=== PATIENT | male | born 1940 | race Caucasian/White ===

== ENCOUNTER 2021-09-06 23:40 | Inpatient (IN) | payer MEDICARE, SELFPAY ==
[2021-09-07] VITALS (48 sets, daily range): BP systolic 67–157; BP diastolic 54–101; PULSE 54–97; RESP 14–38; TEMP 36.5; O2SAT 90–100; BMI 25.6
--- NOTE | 2021-09-07 00:12 | USR_ITS ---
PROCEDURE INFORMATION: Exam: US Left Noninvasive Physiologic Study of the Lower Extremity Arteries, Limited Exam date and time: 09/07/2021 1:38 AM Age: 80 years old Clinical indication: Condition or disease; Peripheral vascular disease; Additional info: Pvd TECHNIQUE: Imaging protocol: Left Limited bilateral noninvasive physiologic studies of lower extremity arteries. Segmental pressures were obtained and evaluated. Images were documented and archived. Exam is limited. COMPARISON: No relevant prior studies available. FINDINGS: Left brachial artery: Segmental pressure 115 mmHg. Left femoral arteries: Left thigh segmental pressure 77 mmHg Left infrapopliteal arteries: Left calf segmental pressure 120 mmHg Left ankle arteries: Left ankle segmental pressures 145 mmHg Left Ankle-Brachial Index: NAILA 1.26 US/CV segpressure [place] s[place] [id number] IMPRESSION: No evidence of stenosis or occlusion in the lower extremity.
--- NOTE | 2021-09-07 00:15 | P.HP_ITS ---
Providers/Chief Complaint Admitting Physician: James Spicer MD Chief Complaint: bilateral PE History of Present Illness Gildardo Malloy is a 80 year old male with past medical history of Coronary artery disease s/p CABG , COPD, right knee BKA , was accepted as ICU transfer from [facility] emergency room, patient presented there with chief complaint of worsening shortness of breath Going on for the last 2 days, further work-up done in the ER there. Revealed acute PE. Patient was transferred here for ICU level of care. Patient is currently requiring 10 to 12 L oxygen through Venturi mask, does have significant desaturation with minimal exertion, currently maintaining a decent MAP. Pertinent imaging studies: CTA: Acute bilateral pulmonary embolism EKG: Pertinent labs: WBC:14 H&H: 14/42 PLT : 277 Serum sodium: 132 serum potassium: 5.8 BUN: 27 and serum creatinine :1.2 Troponin trend: 126-119, 109 ProBNP: 92722 Review of Systems General: Reports: 10 or more systems reviewed and unremarkable except in HPI and below Const: Denies: fever(s), chills, body aches, change in appetite or diaphoresis Card: Reports: orthopnea; Denies: palpitations, edema or swelling of feet/ankles Resp: Reports: dyspnea; Denies: productive cough, wheezing or pain on inspiration GI: Denies: abdominal pain, nausea, vomiting, diarrhea or constipation : Denies: flank pain or difficulty urinating Musc: Denies: back pain Neuro: Denies: headache(s) or confusion Medications/Allergies Home Medications Medication Instructions Recorded Confirmed Last Taken Type acetaminophen 325 mg tablet 650 mg PO QID PRN 09/07/21 09/07/21 Unknown History (Tylenol) clopidogrel 75 mg tablet 75 mg PO DAILY 09/07/21 09/07/21 Unknown History dutasteride 0.5 mg capsule 0.5 mg PO DAILY 09/07/21 09/07/21 Unknown History gabapentin 300 mg capsule 300 mg PO BID 09/07/21 09/07/21 Unknown History qfcqkgqq-gem-zmsfl acid 300 1 tab PO DAILY 09/07/21 09/07/21 Unknown History mcg-lycopene 600 mcg-lutein 300 mcg tablet (Centrum Silver Men) turmeric 400 mg capsule 400 mg PO BID 09/07/21 09/07/21 Unknown History Allergies Allergy/AdvReac Type Severity Reaction Status Date / Time Penicillins Allergy Intermediate ALGY-Anaphy Verified 09/07/21 06:02 laxis Physical Exam Const: COMMON NORMALS: patient oriented x3 HENMT: COMMON NORMALS: normocephalic and atraumatic HEAD & SCALP: normocephalic and atraumatic Chest: COMMONS NORMALS: normal inspection of the chest and normal palpation of entire chest wall CHEST: Yes Symmetrical chest wall rise Resp: EFFORT & INSPECTION: Yes symmetric chest movement OTHER: bilateral wheezing in both lung mijares, tachypneic Cardio: COMMON NORMALS: regular rate, regular rhythm, S1 normal heart sound present, S2 normal heart sound present, No gallops present (Cardio), No murmurs present (Cardio), No rub (Cardio) and Peripheral pulses 2+ throughout RATE: regular rate RHYTHM: regular rhythm HEART SOUNDS: S1 normal heart sound present and S2 normal heart sound present PERIPHERAL PULSES: Peripheral pulses 2+ throughout GI: COMMON NORMALS: Normal to inspection, nondistended, normoactive bowel sounds present, Soft to palpation, non-tender, No hepatosplenomegaly present and no masses AUSCULTATION: Yes normoactive bowel sounds PALPATION: Yes Soft to palpation and Yes No hepatosplenomegaly present RECTAL EXAM: Yes deferred Extremity: COMMON NORMALS: no clubbing, cyanosis or edema and no pedal edema Neuro: COMMON NORMALS: patient oriented x3 Data : 09/07/21 06:40 09/07/21 06:40 A&P Assessment and plan (1) Acute pulmonary embolism: Status: Acute (2) PAD (peripheral artery disease): Status: Acute Plan 80 year old male with past medical history of Coronary artery disease s/p CABG , COPD, right knee BKA , was accepted as ICU transfer from [facility] emergency room, patient presented there with chief complaint of worsening shortness of breath Going on for the last 2 days, further work-up done in the ER there. Revealed acute PE. Assessment: Acute massive bilateral PE Elevated troponin Type II NSTEMI 2/2 P/E History of coronary artery disease s/p CABG Right knee BKA History of COPD Plan: Patient has received Lovenox in the ER at [facility] , we will switch him to heparin drip Low threshold for thrombolysis if hemodynamic instability sets in, Low threshold to transfer to more advanced center for possible thrombectomy 2D echo: : Grossly LV systolic function is mildly ?reduced. Grossly RV is dilated and hypokinetic. Mildly dilated left atrium. Mild tricuspid regurgitation. Lt lower extremity arterial duplex: No evidence of stenosis or occlusion in the lower extremity. lower extremity Doppler vein: B/L L/E DVT Monitor CBC Solu-Medrol 60 IV every 8 hours DuoNebs Telemetry monitoring CODE STATUS: AND Attestations Medical Necessity Statement*: Patient needs to be in hospital for the mangement of acute pulmonary embolism. Anticipated LOS Greater then 2 midnights. Time Spent in Patient Care: Greater than 35 minutes (>than 50% of time spent in counselling and/or direct pt care on unit) . Critical Care Time: The high probability of a clinically significant, sudden or life threatening deterioration of the patient's [] system(s) required my full and direct attention, intervention and personal management. The critical care time is as shown. This time is in addition to time spent performing any reported procedures but includes the following: [x] Data and vital sign review and interpretation [x] Patient assessment, examination and intervention [x] Documentation [x] Medication orders and management Critical Care Time (min): 60 Coding Level of Care Code Acute Dividing Machine Operator for g Fwd Exam Detailed Diagnoses Acute pulmonary embolism I26.99 PAD (peripheral artery disease) I73.9
--- NOTE | 2021-09-07 00:17 | USCV_ITS ---
Gildardo Malloy Age: 80 Gender: M : 1940 Exam Date: 09/07/2021 00:39 Ordering Phys: James Spicer MD Technologist: Cruz Soto Exam Location[place] [facility] [place]ication: Shortness of breath BP: 123 / 74 HR: 70 Rhythm: Sinus Technical Quality: Adequate MEASUREMENTS (Male / Female) Normal Values 2D ECHO LV Diastolic Diameter PLAX 3.3 cm 4.2 - 5.9 / 3.9 - 5.3 cm LV Systolic Diameter PLAX 2.8 cm IVS Diastolic Thickness 2.0 cm 0.6 - 1.0 / 0.6 - 0.9 cm IVS Systolic Thickness 1.4 cm LVPW Diastolic Thickness 1.6 cm 0.6 - 1.0 / 0.6 - 0.9 cm LVPW Systolic Thickness 2.0 cm LVOT Diameter 2.0 cm LV Ejection Fraction 2D Teich 9.1 % LV Ejection Fraction MOD 2C 30.9 % LV Ejection Fraction 2C AL 39.4 % LA Diameter 4.0 cm Aorta at Sinotubular Diameter 2.8 cm M-MODE Aortic Annulus Diameter 4.3 cm LA Ao Ratio MM 1.0 MV E Point Septal Separation 0.9 cm DOPPLER AV Peak Velocity 97.8 cm/s LVOT Peak Velocity 59.0 cm/s AV Area Cont Eq vti 2.6 cm squared AV Area Cont Eq pk 2.0 cm squared MV Area PHT 5.0 cm squared Mitral E to A Ratio 0.5 MV E' Velocity 19.0 cm/s Mitral E to MV E' Ratio 4.4 Mitral E to LV E' Lateral Ratio 4.3 Mitral E to LV E' Septal Ratio 4.6 TR Peak Velocity 263.1 cm/s TR Peak Gradient 27.7 mmHg TR Mean Velocity 188.7 cm/s TR Mean Gradient 15.9 mmHg TR Velocity Time Integral 87.3 cm Right Atrial Pressure 15.0 mmHg Pulmonary Artery Systolic Pressu 42.7 mmHg PV Peak Velocity 74.0 cm/s FINDINGS Left Ventricle Technically limited quality echocardiogram because of poor ultrasonic windows. Grossly LV systolic function is mildly reduced Right Ventricle Grossly RV is dilated and hypokinetic. Right Atrium Not well visualized Left Atrium Mildly dilated Mitral Valve Grossly normal Aortic Valve Not well visualized Tricuspid Valve Mild tricuspid regurgitation. Pulmonic Valve Not visualized Pericardium Grossly normal Aorta Normal in size IVC CONCLUSIONS Technically limited quality echocardiogram with is a poor ultrasonic windows. Grossly LV systolic function is mildly reduced. Grossly RV is dilated and hypokinetic. Mildly dilated left atrium. Mild tricuspid regurgitation. Valvular structures are not well-visualized. No comparison studies are available Mateusz Cortes MD (Electronically Signed) Final Date: 07 September 2021 12:09 S
--- NOTE | 2021-09-07 00:35 | ECG_ITS ---
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 Measurements Intervals [place] Rate: 63 P: 77 NC: 160 QRS: 30 QRSD: 102 T: 25 QT: 458 QTc: 471 Interpretive Statements SINUS RHYTHM WITH SINUS ARRHYTHMIA LOW QRS VOLTAGE IN EXTREMITY LEADS [QRS DEFLECTION < 0.5 mV IN LIMB LEADS] MODERATE T-WAVE ABNORMALITY, CONSIDER ANTERIOR ISCHEMIA [-0.1+ mV T-WAVE IN V3/V4] No previous ECG available for comparison Electronically Signed On 09-07-2021 13:25:17 CDT by Mateusz Cortes M.D. [id number]
[2021-09-07] MEDS: ALPRAZolam 0.5 mg Tablet PO (00:53)
[2021-09-07 01:15] LABS: Troponin(5th) Baseline 126 ng/L (0-15)
--- NOTE | 2021-09-07 02:30 | USR_ITS ---
PROCEDURE INFORMATION: Exam: US Duplex Lower Extremity Veins, Bilateral Exam date and time: 09/07/2021 2:42 AM Age: 80 years old Clinical indication: Other: Pulmonary embolus; Prior surgery; Additional info: Dvt TECHNIQUE: Imaging protocol: Real-time Duplex ultrasound of the bilateral extremities with 2-D del castillo scale, color Doppler flow and spectral waveform analysis with image documentation. Complete exam focused on the bilateral lower extremity veins. COMPARISON: US Lower Arterial 09/07/2021 1:38 AM FINDINGS: Right deep veins: Unremarkable. The common femoral, femoral, proximal profunda femoral veins are patent without thrombus. Normal Doppler waveforms. Normal compressibility and/or augmentation response. The popliteal vein is occluded Right superficial veins: Status post below the knee amputation. Left deep veins: The common femoral and proximal profunda femoral veins are patent with nonocclusive mural thrombus seen at the bifurcation. There is mural thrombus present within the mid superficial femoral vein and occlusive thrombus present in the distal superficial femoral vein and popliteal vein. Left superficial veins: Saphenofemoral junction is patent without thrombus. Soft tissues: Unremarkable. US/[place] [id number] IMPRESSION: 1. There is occlusion of the right popliteal vein in this patient is status post right below the knee amputation. 2. Partial compressibility secondary to nonocclusive mural thrombus seen in the bifurcation of the left common femoral and profunda femoral veins. 3. Occlusive thrombus seen within the left popliteal vein.
[2021-09-07] MEDS: ipratropium-albuterol 3 mL Neb INHALATION ×6 (03:03→23:41)
[2021-09-07 03:34] LABS: Troponin 5 2HR 119.9 ng/L (0-15); Troponin 5 2HR Delta -6.1 ABS# (0-10)
[2021-09-07] MEDS: morphine 4 mg/mL SDV 1 mL 2 MG IVP ×3 (03:50→12:54)
[2021-09-07] MEDS: heparin drip 25,000 UNIT/500 ML PREMIX 25 UNIT IV (04:21)
[2021-09-07 07:15] LABS: Basophils % 0.2 %; Hematocrit 42.7 % (42.0-52.0); Hemoglobin 14.9 g/dL (11.7-16.6); Lymphocytes # 1.2 10^3/uL (0.8-4.8); Lymphocytes % 7.9 %; Mean Corpuscular HGB Conc 34.9 g/dL (30.0-36.0); Mean Corpuscular Hemoglobin 32.3 pg (28.0-34.0); Mean Corpuscular Volume 92.4 fl (80-94); Mean Platelet Volume 10.4 fL (7.4-10.4); Monocytes # 0.6 10^3/uL (0.2-0.9); Monocytes % 3.8 %; Neutrophils # 12.71 10^3/uL (1.8-7.7); Neutrophils % 86.7 %; Nucleated Red Blood Cells % 0 %; Platelet Count 277 10^3/cmm (130-400); Red Blood Count 4.62 10^6/uL (4.1-5.3); Red Cell Distribution Width 14.7 % (12.1-15.1); White Blood Count 14.7 10^3/uL (4.0-10.0)
[2021-09-07] MEDS: sodium chloride 0.9% 1,000 ML 75 ML IV (07:17)
[2021-09-07] MEDS: LORazepam 2 mg/mL INJ 1 mL 1 MG IVP (07:50)
--- NOTE | 2021-09-07 08:03 | PC.NURSE ---
Dr. Soto at bedside, spoke with via phone, no n.o. at this time, advised to keep ordered morphine and ativan for air hunger/bipap compliance
[2021-09-07 08:19] LABS: Troponin 5 6HR 109.8 ng/L (0-15); Troponin 5 6HR Delta -16.2 ng/L (0-12)
[2021-09-07 08:21] LABS: Alanine Aminotransferase 27 U/L (0-41); Albumin Level 3.4 g/dL (3.5-5.2); Alkaline Phosphatase 97 IU/L (40-130); Anion Gap 24.8 (5-19); Aspartate Amino Transferase 36 U/L (0-40); Blood Urea Nitrogen 27 mg/dL (8-23); Calcium 8.9 mg/dL (8.5-10.5); Carbon Dioxide 16 mmol/L (22-29); Chloride 97 mmol/L (98-107); Globulin 3.8 g/dL (1.3-4.6); Glucose 181 mg/dL (65-115); NT Pro B Type Natriuretic Pept 10412 pg/mL (0-450); Osmolality Calculated 284 mOsm/kg (285-295); Potassium 5.8 mmol/L (3.5-5.1); Sodium 132 mmol/L (136-145); Thyroid Stimulating Hormone 2.63 uIU/mL (0.27-4.20); Total Bilirubin 0.7 mg/dL (0.15-1.2); Total Protein 7.2 g/dL (6.6-8.7)
[2021-09-07 08:57] LABS: INR 1.29 (0.8-1.2)
[2021-09-07 08:59] LABS: Partial Thromboplastin Time 64.8 SECONDS (23.9-36.7)
[2021-09-07 09:21] LABS: Fibrinogen 382 mg/dL (174-498)
[2021-09-07 09:23] LABS: D Dimer 13.49 ug/mIFEU (0-0.59)
[2021-09-07 10:40] LABS: Partial Thromboplastin Time 98.6 SECONDS (23.9-36.7)
--- NOTE | 2021-09-07 10:47 | PC.NURSE ---
patient fighting bipap trying to take it off, unable to reorient, Dr. Soto came to bedside and spoke with , HCP to try to transfer patient to another facility
[2021-09-07] MEDS: calcium gluconate 0.9% NaCL 1 GM/50 ML PREMIX IV (12:04)
[2021-09-07] MEDS: dextrose 50% syringe 50 mL 25 ML IVP (12:05)
[2021-09-07] MEDS: insulin regular-human 10 UNIT in SYRINGE 1 EACH IVP (12:05)
[2021-09-07 12:18] LABS: Vitamin B12 747 pg/mL (232-1245)
--- NOTE | 2021-09-07 13:21 | PC.NURSE ---
informed this nurse if patient cannot get a bed in [place] she does not want him sent out. Dr. Soto notified
--- NOTE | 2021-09-07 13:27 | PC.NURSE ---
Dr. Soto approved order for precedemiracle [place]
[2021-09-07] MEDS: dexmedeTOMIDine 0.9 % NaCL 400 MCG/100 ML PREMIX IV (13:51)
--- NOTE | 2021-09-07 13:52 | P.MISC_ITS ---
Miscellaneous Note Note: I did review records from outside I could not find CT result However I discussed this case with Dr. Cortes who reviewed CTA chest with me bilateral massive clot burden however no saddle embolism Patient is not requiring any vasopressors Is very anxious and tachypneic I had to put him on BiPAP and use Precedex along morphine I did speak with his for Youssef in the morning Patient stated that he does not want to be resuscitated in case of any cardiac arrest or worsening hypoxic respiratory failure asked me to keep him in our ICU because when I try to transfer him to [facility], [facility] ICU is on diversion does not want him to go anywhere else other than [place] Patient is currently on BiPAP 140/91 blood pressure Saturating well on BiPAP Very anxious and tachypneic Cachectic Malnourished Right BKA Looks dry Very hard of hearing S1, S2 sinus tachycardia Assessment plan Bilateral massive PE No signs of hypotension Troponin trending down BNP 10,000 Submassive PE Continue heparin drip Continue BiPAP for hypoxic respiratory failure Precedex and morphine for as needed use Is DNR/DNI did not allow me to transfer him anywhere else other than [place] He does not meet DIC criteria For hyperkalemia I have given him 10 units of regular insulin along 1 amp of D50, 1 g of calcium gluconate Right ventricle is hypokinetic and dilated Patient is at high risk of mortality and morbidity Patient was evaluated multiple times today I did speak with Dr. Spicer admitting physician and the supervisor show operations, outside records were reviewed
[2021-09-07 16:42] LABS: Partial Thromboplastin Time 76.1 SECONDS (23.9-36.7)
[2021-09-07 23:29] LABS: Partial Thromboplastin Time 78.8 SECONDS (23.9-36.7)
[2021-09-08] VITALS (27 sets, daily range): BP systolic 87–135; BP diastolic 57–85; PULSE 63–86; RESP 14–28; TEMP 36.1–36.4; O2SAT 87–100
[2021-09-08] MEDS: sodium chloride 0.9% 1,000 ML 75 ML IV ×2 (05:33→19:42)
[2021-09-08] MEDS: heparin drip 25,000 UNIT/500 ML PREMIX 16 UNIT IV (05:33)
[2021-09-08 06:25] LABS: Basophils % 0.1 %; Hemoglobin 13.2 g/dL (11.7-16.6); Lymphocytes # 1.2 10^3/uL (0.8-4.8); Lymphocytes % 6.9 %; Mean Corpuscular HGB Conc 34.7 g/dL (30.0-36.0); Mean Corpuscular Hemoglobin 32.2 pg (28.0-34.0); Mean Corpuscular Volume 92.7 fl (80-94); Mean Platelet Volume 10.8 fL (7.4-10.4); Monocytes % 6.1 %; Neutrophils # 14.48 10^3/uL (1.8-7.7); Neutrophils % 86.3 %; Nucleated Red Blood Cells % 0 %; Platelet Count 291 10^3/cmm (130-400); Red Cell Distribution Width 14.8 % (12.1-15.1); White Blood Count 16.8 10^3/uL (4.0-10.0)
[2021-09-08 06:44] LABS: Partial Thromboplastin Time 57.4 SECONDS (23.9-36.7)
[2021-09-08] MEDS: ipratropium-albuterol 3 mL Neb INHALATION ×4 (07:55→19:53)
--- NOTE | 2021-09-08 07:56 | PC.NURSE ---
verbal order for 0ne time 500ml bolus normal saline, Dr. benavides at bedside
[2021-09-08] MEDS: sodium chloride 0.9% 500 ML 999 ML IV (08:31)
[2021-09-08 08:46] LABS: Anion Gap 18.7 (5-19); Blood Urea Nitrogen 33 mg/dL (8-23); Calcium 8.9 mg/dL (8.5-10.5); Carbon Dioxide 22 mmol/L (22-29); Chloride 104 mmol/L (98-107); Glucose 145 mg/dL (65-115); Osmolality Calculated 300 mOsm/kg (285-295); Potassium 4.7 mmol/L (3.5-5.1); Sodium 140 mmol/L (136-145)
--- NOTE | 2021-09-08 09:29 | PM.PN ---
Subjective Subjective: This morning patient is on 5 L high flow nasal cannula which was turned down to 3 L Able to eat regular diet Patient is still tachypneic Blood pressure is running soft We will give him 500 mL bolus Urine is concentrated Currently on Precedex 0.2 as well Heparin drip at the bedside Will do arterial Doppler left leg Vitals/I&O/Wt Last Vital Signs Temp 96.9 F L 09/08/21 04:00 Pulse 68 09/08/21 08:00 Resp 24 H 09/08/21 08:00 BP 89/58 09/08/21 08:00 Pulse Ox 98 09/08/21 07:57 09/07/21 09/08/21 09/08/21 22:59 06:59 14:59 Intake Total 1172.206 / 1346.056 212.917 / 1558.973 100 / 100 Output Total 450 / 450 300 / 750 Balance 722.206 / 896.056 -87.083 / 808.973 100 / 100 Weight last 48 hrs Weight 87.997 kg Physical Exam Narrative: Patient is much more awake and alert today as compared to yesterday Hearing impairment Currently on 3 L high flow nasal cannula Blood pressure is soft Currently on Precedex drip Awake and alert He knows he is in the hospital Tachypneic Does not use audioprosthologist muscles Abdomen is soft Mottling of left leg Left foot is cold Urinary Catheter Management: Alvarenga: Cath Placed During This Visit: yes Reason for Continuing Indwelling Catheter: Accurate Measurement of Urinary Output in Critically Ill Patients Urinary Catheter Date of Insertion: 09/07/21 Urinary Catheter Time of Insertion: 02:30 Data : 09/08/21 05:40 09/08/21 05:40 A&P Assessment and plan (1) PAD (peripheral artery disease): Status: Acute (2) Acute pulmonary embolism: Status: Acute (3) Hypoxia: Status: Acute Plan Submassive PE with acute hypoxia Bilateral high clot burden Currently heparin drip Doing arterial duplex left leg for peripheral arterial disease Patient refusing BiPAP Currently on 3 L high flow cannula I will let him have regular diet does not want me to transfer him anywhere other than [place] Hypotensive related to dehydration he has not been eating since yesterday, will do 1 L bolus We will try [facility] again today Echo showing right ventricle compromise Guarded prognosis Excessive clot burden He also has history of COPD, continue steroids, DuoNeb For preload support continue normal saline Titrate off Precedex Attestations Medical Necessity Statement*: Continue ICU management Time Spent in Patient Care: 30 Coding Level of Care Code Acute Veterans' Counselor for Lillianag Fwd Diagnoses PAD (peripheral artery disease) I73.9 Acute pulmonary embolism I26.99 Hypoxia R09.02
--- NOTE | 2021-09-08 10:12 | PC.CHAP ---
Pastoral Care Encounter/Spiritual Assessment Type of Contact [] Declined cartographic drafter visit [] Patient/Family/Request visit [] Outpatient visit [] Follow-up visit [] Physician referral [] Code/Alert [x] Routine visit [] Staff referral [] Actively dying [x] Patient sleeping [] Family support [] [] Out of room [] Palliative care [] [] Receiving care in room [] Pre-surgical visit [] Trauma [] Long length of stay [x] ICU visit [] Other: Relational/Emotional Strength [] Patient feels connected with others/family/visitors/staff [] Distress [] Loneliness/isolation [] Abandonment Spirituality of Patient [] Person of Leelee [] Attends Evangelical of their Leelee [] Believes in Prayer [] Reads Bible or Voodoo materials [] There are Spiritual issues to be addressed Cost Manager Interventions [x] Prayer [] Active listening [] Non-anxious presence [] Spiritual/emotional support [] Crisis/trauma care [] Spiritual counseling [] Bereavement support [] Provided bereavement packet [] Provided Bible/devotional materials [] Provided toy/stuffed animal, coloring book to patient or family member [] Provided Communion [] Anointing/[place] [] Salvation [x] Completed spiritual assessment [] Other: Impact on Illness or Injury [] Angry [] Fearful [] Anxious [] Often cries [] Exhaustion [] Unable to work [] Unable to attend synagogue [] Unable to walk/stand [] Unable to read [] Unable to drive [] Unable to eat/drink [] Unable to sleep [] Unable to be with family [] Patient intubated [] Other: Summary Time spent with patient
--- NOTE | 2021-09-08 10:34 | PC.NURSE ---
Dr. soto is at bedside, pt id [id number] pt agrees to be transfered he will see if he can get pt accepted. Dr. Soto asked us to get pt up to chair
[2021-09-08] MEDS: dexmedeTOMIDine 0.9 % NaCL 400 MCG/100 ML PREMIX IV (10:38)
[2021-09-08 16:50] LABS: Partial Thromboplastin Time 60.1 SECONDS (23.9-36.7)
[2021-09-08] MEDS: LORazepam 2 mg/mL INJ 1 mL 1 MG IVP (21:04)
[2021-09-09] VITALS (24 sets, daily range): BP systolic 100–166; BP diastolic 70–89; PULSE 59–99; RESP 17–30; TEMP 35.8–36.4; O2SAT 90–100
[2021-09-09] MEDS: ipratropium-albuterol 3 mL Neb INHALATION ×7 (00:12→23:20)
[2021-09-09 03:39] LABS: Basophils % 0.1 %; Hematocrit 37.5 % (42.0-52.0); Lymphocytes # 0.6 10^3/uL (0.8-4.8); Lymphocytes % 3.6 %; Mean Corpuscular HGB Conc 34.7 g/dL (30.0-36.0); Mean Corpuscular Hemoglobin 31.7 pg (28.0-34.0); Mean Corpuscular Volume 91.5 fl (80-94); Mean Platelet Volume 10.7 fL (7.4-10.4); Monocytes # 1.1 10^3/uL (0.2-0.9); Monocytes % 6.6 %; Neutrophils # 15.04 10^3/uL (1.8-7.7); Neutrophils % 89.2 %; Nucleated Red Blood Cells % 0 %; Platelet Count 310 10^3/cmm (130-400); White Blood Count 16.9 10^3/uL (4.0-10.0)
[2021-09-09 03:51] LABS: Partial Thromboplastin Time 39.1 SECONDS (23.9-36.7)
[2021-09-09 03:58] LABS: Anion Gap 13.5 (5-19); Blood Urea Nitrogen 29 mg/dL (8-23); Calcium 8.3 mg/dL (8.5-10.5); Carbon Dioxide 23 mmol/L (22-29); Chloride 108 mmol/L (98-107); Glucose 134 mg/dL (65-115); Osmolality Calculated 298 mOsm/kg (285-295); Potassium 4.5 mmol/L (3.5-5.1); Sodium 140 mmol/L (136-145)
[2021-09-09] MEDS: sodium chloride 0.9% 1,000 ML 75 ML IV (08:51)
--- NOTE | 2021-09-09 10:15 | PC.CHAP ---
Pastoral Care Encounter/Spiritual Assessment Type of Contact [] Declined branding machine operator visit [] Patient/Family/Request visit [] Outpatient visit [] Follow-up visit [] Physician referral [] Code/Alert [x] Routine visit [] Staff referral [] Actively dying [x] Patient sleeping [] Family support [] [] Out of room [] Palliative care [] [] Receiving care in room [] Pre-surgical visit [] Trauma [] Long length of stay [x] ICU visit [] Other: Relational/Emotional Strength [] Patient feels connected with others/family/visitors/staff [] Distress [] Loneliness/isolation [] Abandonment Spirituality of Patient [] Person of Leelee [] Attends Religion of their Leelee [] Believes in Prayer [] Reads Bible or Church materials [] There are Spiritual issues to be addressed Rewinder Interventions [x] Prayer [] Active listening [] Non-anxious presence [] Spiritual/emotional support [] Crisis/trauma care [] Spiritual counseling [] Bereavement support [] Provided bereavement packet [] Provided Bible/devotional materials [] Provided toy/stuffed animal, coloring book to patient or family member [] Provided Communion [] Anointing/[place] [] Salvation [x] Completed spiritual assessment [] Other: Impact on Illness or Injury [] Angry [] Fearful [] Anxious [] Often cries [] Exhaustion [] Unable to work [] Unable to attend adventist [] Unable to walk/stand [] Unable to read [] Unable to drive [] Unable to eat/drink [] Unable to sleep [] Unable to be with family [] Patient intubated [] Other: Summary Time spent with patient
--- NOTE | 2021-09-09 10:40 | PC.NURSE ---
at bedside, informed this nurse she wants patient sent to a different facility or does not want D/C from hospital until clots are gone, this nurse notified Dr. Soto wants to speak with HCP
--- NOTE | 2021-09-09 10:53 | PM.PN ---
Subjective Subjective: Patient is on high flow nasal cannula has fluctuated between 5 to 7 L He was eating breakfast Feeling hungry Not complaining of leg pain today Able to hear is better with new batteries of his hearing aids Vitals/I&O/Wt Last Vital Signs Temp 97.5 F L 09/09/21 04:00 Pulse 74 09/09/21 08:00 Resp 20 H 09/09/21 08:00 BP 136/81 09/09/21 08:00 Pulse Ox 98 09/09/21 08:00 09/08/21 09/09/21 09/09/21 22:59 06:59 14:59 Intake Total 1940 / 2613.7 385.6 / 2999.3 1306.25 / 1306.25 Output Total 1050 / 1050 250 / 1300 Balance 890 / 1563.7 135.6 / 1699.3 1306.25 / 1306.25 Physical Exam Narrative: Patient was eating breakfast when entered the room Currently on high flow nasal cannula 7 L Bilateral breath sounds without adventitious rhonchi or crackles Tachypnea improved Awake and alert Nonfocal neuro exam Left leg is warm up to ankle toes still cyanotic Abdomen soft Patient is awake and alert Nonfocal neuro exam Urinary Catheter Management: Alvarenga: Cath Placed During This Visit: yes Reason for Continuing Indwelling Catheter: Accurate Measurement of Urinary Output in Critically Ill Patients Urinary Catheter Date of Insertion: 09/07/21 Urinary Catheter Time of Insertion: 02:30 Data : 09/09/21 03:10 09/09/21 03:10 A&P Assessment and plan (1) Hypoxia: Status: Acute (2) PAD (peripheral artery disease): Status: Acute (3) Acute pulmonary embolism: Status: Acute Plan Bilateral pulmonary embolism Currently on heparin drip Acute hypoxia related to bilateral PEs No signs of vascular hemodynamic compromise I am treating him for submassive PE Echo did show right ventricular hypokinesia At high risk of sudden cardiac arrest, At this point he is not tachypneic, nor hypotensive Plan to transfer out of ICU to [facility] Patient is able to eat Left leg is warm toes are cyanotic, venous Doppler and arterial duplex unremarkable no signs of acute ischemia Continue heparin drip until the day of discharge Patient does have all equipment at home for transfer out of bed and ambulation Attestations Medical Necessity Statement*: Transfer out of ICU Time Spent in Patient Care: 30 Coding Level of Care Code Acute Engagement Mgr for Chg Fwd Diagnoses Hypoxia R09.02 PAD (peripheral artery disease) I73.9 Acute pulmonary embolism I26.99
--- NOTE | 2021-09-09 11:24 | PC.SOCIAL ---
IMM Update pg 2 of IMM updated and reviewed w/ patient. Copy provided and Copy placed in chart.
--- NOTE | 2021-09-09 11:25 | PC.NURSE ---
Dr. Soto to try to transfer patient to [facility] per and patient request
[2021-09-09 14:26] LABS: Partial Thromboplastin Time 32.1 SECONDS (23.9-36.7)
[2021-09-09] MEDS: heparin drip 25,000 UNIT/500 ML PREMIX 25 UNIT IV (14:37)
[2021-09-09] MEDS: heparin 5,000 unit/mL INJ 1 mL IV (22:39)
[2021-09-10] VITALS (11 sets, daily range): BP systolic 134–152; BP diastolic 71–89; PULSE 74–93; RESP 18–24; TEMP 36.3–37; O2SAT 92–99
[2021-09-10] MEDS: sodium chloride 0.9% 1,000 ML 75 ML IV (00:15)
[2021-09-10 06:33] LABS: Basophils % 0.1 %; Hematocrit 38.2 % (42.0-52.0); Hemoglobin 13.3 g/dL (11.7-16.6); Lymphocytes # 0.6 10^3/uL (0.8-4.8); Lymphocytes % 4.4 %; Mean Corpuscular HGB Conc 34.8 g/dL (30.0-36.0); Mean Corpuscular Hemoglobin 32.4 pg (28.0-34.0); Mean Corpuscular Volume 92.9 fl (80-94); Mean Platelet Volume 10.5 fL (7.4-10.4); Monocytes # 0.9 10^3/uL (0.2-0.9); Monocytes % 7.4 %; Neutrophils # 11.04 10^3/uL (1.8-7.7); Neutrophils % 87.5 %; Nucleated Red Blood Cells % 0 %; Platelet Count 316 10^3/cmm (130-400); Red Blood Count 4.11 10^6/uL (4.1-5.3); Red Cell Distribution Width 15.3 % (12.1-15.1); White Blood Count 12.6 10^3/uL (4.0-10.0)
[2021-09-10] MEDS: heparin drip 25,000 UNIT/500 ML PREMIX 27 UNIT IV (06:35)
[2021-09-10 06:50] LABS: Partial Thromboplastin Time 100.5 SECONDS (23.9-36.7)
[2021-09-10 07:09] LABS: Anion Gap 13.6 (5-19); Blood Urea Nitrogen 23 mg/dL (8-23); Calcium 8.3 mg/dL (8.5-10.5); Carbon Dioxide 23 mmol/L (22-29); Chloride 110 mmol/L (98-107); Glucose 156 mg/dL (65-115); Osmolality Calculated 301 mOsm/kg (285-295); Potassium 4.6 mmol/L (3.5-5.1); Sodium 142 mmol/L (136-145)
[2021-09-10] MEDS: ipratropium-albuterol 3 mL Neb INHALATION ×3 (08:07→16:16)
--- NOTE | 2021-09-10 11:00 | P.PN_ITS ---
Subjective Subjective: Patient is on 4 L nasal cannula this morning Not endorsing active shortness of breath however gets tachypneic with minimal exertion Blood pressure stable Discontinue IV fluids I did speak with Dr. Cortes for IVC filter placement today, case discussed with Dr. Henson [facility] and [facility] are at full capacity Patient is not unstable at this point however he is at risk because of right v entricle hypokinesia and dilation, catheter directed therapy at this point after 4 days of admission might not be indicated especially with stable vitals, in order to prevent another thromboembolic phenomenon requested Dr. Cortes for IVC filter placement who will evaluate patient today Patient has bilateral DVT Vitals/I&O/Wt Last Vital Signs Temp 97.8 F 09/10/21 08:18 Pulse 83 09/10/21 08:18 Resp 19 H 09/10/21 08:18 BP 149/88 09/10/21 08:18 Pulse Ox 99 09/10/21 08:18 09/09/21 09/10/21 09/10/21 22:59 06:59 14:59 Intake Total 1540.833 / 3161.483 214.2 / 3375.683 120 / 120 Output Total 550 / 550 350 / 900 Balance 990.833 / 2611.483 -135.8 / 2475.683 120 / 120 Physical Exam Narrative: Patient is on MedSurg Currently on 4 L nasal cannula Clear breath sounds I do not appreciate any crackles or rhonchi today S1, S2 Blood pressure is stable Looks euvolemic Nurses at the bedside Pulse ox showing 94% on 4 L nasal cannula However patient does get tachypneic on minimal exertion Left leg mottling has improved, toes are cold otherwise no other ischemic ulcer changes Urinary Catheter Management: Alvarenga: Cath Placed During This Visit: yes Reason for Continuing Indwelling Catheter: Acute Urinary Retention or Obstruction Urinary Catheter Date of Insertion: 09/07/21 Urinary Catheter Time of Insertion: 02:30 Data : 09/10/21 06:02 09/10/21 06:02 A&P Assessment and plan (1) Hypoxia: Status: Acute (2) PAD (peripheral artery disease): Status: Acute (3) Acute pulmonary embolism: Status: Acute (4) DVT (deep venous thrombosis): Status: Acute Plan Bilateral DVT and bilateral PE Huge clot burden with right ventricular hypokinesia and dilation Right ventricular strain Continue heparin drip Discussed IVC filter placement with Dr. Cortes Currently patient is on 4 L nasal cannula systolic blood pressure ranging between 130 to 149 mmHg No active chest pain I have tried [facility] and [facility] they are at full capacity, I was not able to transfer him to any other facility from our ICU, I have kept him on MedSurg for now Dr. Henson recommended discontinuation of IV fluids and use of diuretics to avoid right ventricular overload Patient is DNR/DNI Continue regular diet We will update his I would only use prednisone 40 mg p.o. instead of IV Dr. Cortes has been notified and consulted Attestations Medical Necessity Statement*: Continue medical management Time Spent in Patient Care: 35 Coding Level of Care Code Acute Personal Secretary for Chg Fwd Diagnoses Hypoxia R09.02 PAD (peripheral artery disease) I73.9 Acute pulmonary embolism I26.99 DVT (deep venous thrombosis) I82.409
[2021-09-10] MEDS: FUROsemide 10 mg/mL SDV 2mL 20 MG IVP (11:28)
--- NOTE | 2021-09-10 11:47 | P.CONIM_ITS ---
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 He was found to have bilateral submassive PE. Troponins were elevated. Echo showed RV dysfunction. Primary team attempted to transfer to [facility] for possible PE thrombectomy however no beds were available. Interventional cardiology was consulted today for for placement of IVC filter. He was found to have bilateral DVTs. Review of Systems General: Reports: 10 or more systems reviewed and unremarkable except in HPI and below Const: Denies: fever(s), chills, body aches, change in appetite or diaphoresis Card: Reports: orthopnea; Denies: palpitations, edema or swelling of feet/ankles Resp: Reports: dyspnea; Denies: productive cough, wheezing or pain on inspiration GI: Denies: abdominal pain, nausea, vomiting, diarrhea or constipation : Denies: flank pain or difficulty urinating Musc: Denies: back pain Neuro: Denies: headache(s) or confusion Medications/Allergies Home Medications Medication Instructions Recorded Confirmed Last Taken Type acetaminophen 325 mg tablet 650 mg PO QID PRN 09/07/21 09/07/21 Unknown History (Tylenol) clopidogrel 75 mg tablet 75 mg PO DAILY 09/07/21 09/07/21 Unknown History dutasteride 0.5 mg capsule 0.5 mg PO DAILY 09/07/21 09/07/21 Unknown History gabapentin 300 mg capsule 300 mg PO BID 09/07/21 09/07/21 Unknown History dtkzrily-knn-rwcca acid 300 1 tab PO DAILY 09/07/21 09/07/21 Unknown History mcg-lycopene 600 mcg-lutein 300 mcg tablet (Centrum Silver Men) turmeric 400 mg capsule 400 mg PO BID 09/07/21 09/07/21 Unknown History Allergies Allergy/AdvReac Type Severity Reaction Status Date / Time Penicillins Allergy Intermediate ALGY-Anaphy Verified 09/07/21 06:02 laxis Current Medications Generic Name Dose Route Start Last Admin Trade Name Freq PRN Reason Stop Dose Admin Albuterol/Ipratropium 3 ml 09/07/21 04:00 09/10/21 11:35 Ipratropium-Albuterol 3 Ml Neb INHALATION 3 ml Q4H.RESPIRATORY KARLA Administration Alprazolam 0.5 mg 09/07/21 00:17 09/07/21 00:53 Alprazolam 0.5 Mg Tablet PO 0.5 mg TID PRN Administration ANXIETY Furosemide 20 mg 09/10/21 10:30 09/10/21 11:28 Furosemide 10 Mg/Ml Sdv 2ml IVP 20 mg Q24H KARLA Administration Heparin Sodium (Porcine) 0 unit 09/07/21 00:14 09/09/21 22:39 Heparin 5,000 Unit/Ml Inj 1 Ml IV 1,800 unit PRN PRN Administration Heparin weight-base protocol Protocol Heparin Sodium/Sodium Chloride 25,000 unit in 500 mls @ 0 mls/hr 09/07/21 00:15 09/10/21 06:35 Heparin Drip IV 15.34 unit/kg/hr .Q0M KARLA 27 mls/hr Administration Protocol Per Protocol Lorazepam 1 mg 09/07/21 04:26 09/08/21 21:04 Lorazepam 2 Mg/Ml Inj 1 Ml IVP 1 mg Q8H PRN Administration ANXIETY Morphine Sulfate 2 mg 09/07/21 00:09 09/07/21 12:54 Morphine 4 Mg/Ml Sdv 1 Ml IVP 2 mg Q4H PRN Administration SEVERE PAIN PFSH Acute PFSH: Medical History Amputated right leg Amputee, lower limb Aortobifemoral bypass graft thrombosis COPD (chronic obstructive pulmonary disease) Peripheral arterial disease Vitals/I&O/Wt Last Vital Signs Temp 97.8 F 09/10/21 08:18 Pulse 84 09/10/21 11:43 Resp 22 H 09/10/21 11:36 BP 149/88 09/10/21 08:18 Pulse Ox 94 09/10/21 11:36 09/09/21 09/10/21 09/10/21 22:59 06:59 14:59 Intake Total 1540.833 / 3161.483 214.2 / 3375.683 120 / 120 Output Total 550 / 550 350 / 900 Balance 990.833 / 2611.483 -135.8 / 2475.683 120 / 120 Physical Exam Narrative: GENERAL: Patient is alert, awake and oriented x3. [] NECK: No jugular vein distension. [] HEENT: No cyanosis. No icterus. No pallor. [] HEART: Regular S1 and S2. No murmur, rub or gallop. [] LUNGS: Tachypneic ABDOMEN: Soft, nontender and nondistended. Positive bowel sounds. No guarding, rebound or tenderness. [] CENTRAL NERVOUS SYSTEM: Grossly nonfocal. [] EXTREMITIES: Right lower extremity BKA Urinary Catheter Management: Alvarenga: Cath Placed During This Visit: yes Reason for Continuing Indwelling Catheter: Acute Urinary Retention or Obstruction Urinary Catheter Date of Insertion: 09/07/21 Urinary Catheter Time of Insertion: : Data : 09/10/21 06:02 09/10/21 06:02 A&P Assessment and plan (1) DVT (deep venous thrombosis): Status: Acute (2) Acute pulmonary embolism: Status: Acute (3) PAD (peripheral artery disease): Status: Acute Plan Patient presented with acute submassive PE recently. Attempts at transfer to a center for thrombectomy were unsuccessful because of bed availability issues. Interventional cardiology was consulted today for IVC filter placement as patient has bilateral DVTs and heavy clot burden in the pulmonary arteries. Given his situation, heavy pulmonary artery clot burden and limited mobility secondary to BKA, it is reasonable to proceed with IVC filter placement. We will plan on placing it tomorrow morning. N.p.o. past midnight. Continue IV heparin. Patient is DNR/DNI but agreed for IVC filter placement. However does not want to change code status for the procedure. I also spoke with patient's who is in agreement for IVC filter placement. Risks and benefits of the procedure discussed with patient. Thank you for involving us with care of this patient. We will continue to follow. Please call with questions Consult Attestations Medical Necessity Statement: Care expected to cross 2 midnights. Coding Level of Care Code Acute Nuclear Medicine Specialist for Lillianag Fwd Diagnoses DVT (deep venous thrombosis) I82.409 Acute pulmonary embolism I26.99 PAD (peripheral artery disease) I73.9
[2021-09-10 11:55] LABS: Glucose Point of Care 158 mg/dL (70-110)
[2021-09-10 16:16] LABS: Partial Thromboplastin Time 65.5 SECONDS (23.9-36.7)
[2021-09-10] MEDS: benzonatate 100 mg Capsule PO (19:44)
[2021-09-10 21:22] LABS: Partial Thromboplastin Time 30.3 SECONDS (23.9-36.7)
[2021-09-10] MEDS: heparin 5,000 unit/mL INJ 1 mL IV (22:10)
[2021-09-11] VITALS: BP 122/72; PULSE 78; RESP 19; TEMP 36.8; O2SAT 95
[2021-09-11 01:18] LABS: Glucose Point of Care 144 mg/dL (70-110)
--- NOTE | 2021-09-11 01:51 | PC.NURSE ---
[facility] was contacted by this RN on 09/11/2021 at 0138. This RN spoke with carlota. Per carlota no rule out as of yet will investigate further. Reference number [id number].
--- NOTE | 2021-09-11 02:25 | PC.NURSE ---
09/11/[address] [facility] returned call to this RN to inform that they will be reaching out to family and to bring pt to [facility] [place].
--- NOTE | 2021-09-11 02:25 | PC.NURSE ---
At 12:45 patient was heard calling out. Nurse went into patient room to assess and patient was found to be in respiratory distress. Oxygen was increased to 6L, and head of bed elevated. Attempts to obtain oxygen saturation and BP were unsucessful. Rapid Response was called at 1am, Dr Umana arrived at bedside. Patient code status was AND, respirations agonal, and weak pulse with heart rate in 30s. Patient was nonverbal. Nurse called and spoke with patients , Amelia at 1:17am regarding the patient change in condition. also spoke with patient regarding the patients code status and treatment options, no changes were made to the patients code status at this time. The was informed she would be called with an update. The patient and was declared at 1:25am. The patient was called and notified of his passing at 1:38am. The family has no home plans at this time. electronic maintenance supervisor Petrona was notified of patient passing. Postmordem care was completed.
--- NOTE | 2021-09-11 06:29 | P.DES_ITS ---
Discharge Providers DDS Date of Admission: 09/06/21 23:40 Date Summary Completed: 09/11/21 Attending Provider at Admission: James Spicer MD Attending Provider at Discharge: MD ELLIS Gauthier Diagnoses Hospital Diagnoses (1) Hypoxia: (2) PAD (peripheral artery disease): (3) Acute pulmonary embolism: (4) DVT (deep venous thrombosis): Reason for Visit Reason for Visit bilateral PE Summary Summary Summary: This patient was transferred to our facility from [facility] for management of PE, initially he was very unstable with low blood pressure, worsening of hypoxia, asked me to only try [place] and unfortunately [facility] were at full capacity to accept patients, patient was kept on heparin drip, BiPAP, his echo revealed right ventricular hypokinesia with dilation venous Doppler showed multiple DVTs, arterial duplex did not show acute ischemic changes of the left leg. was kept updated on daily basis, I did speak with Dr. Cortes and Dr. Henson when I was not able to place him anywhere I did call [facility]. We were able to wean him off BiPAP to high flow nasal cannula 4 to 5 L, his blood pressure remained stable, patient was DNR/DNI. 09/11 patient became unstable 1245, rapid response was called, patient's was contacted, no change in CODE STATUS, patient 1:38 AM Additional Data Confirmation of as documented by pronouncing clinician: no pulse, no respirations, no heart sounds and pupils fixed and dilated Family: contacted Additional persons at bedside: nursing staff Attending/PCP notified?: I am attending Was code activated?: No Autopsy requested?: No Advance directives?: No Hospice patient?: No Discharge Plan Discharge Patient Disposition: Condition: Stable Probable Cause of Probable cause of : Pulmonary embolism DS Attestations Time Spent in /Discharge Care*: less than 30 min Quality - AMI: AMI present?: No Quality - Stroke: CVA present?: No Quality - VTE: VTE present?: No Deep Vein Thrombosis/Pulmonary Embolism Present on Admission: Yes Coding Level of Care Code Acute Sales Warehouse Driver for Chg Fwd Diagnoses Hypoxia R09.02 PAD (peripheral artery disease) I73.9 Acute pulmonary embolism I26.99 DVT (deep venous thrombosis) I82.409
== END 2021-09-11 01:30 | disposition expired | DRG 175 ==
LOC: ICU 09-09 01:54 → MEDSURG 09-09 15:26
PROVIDERS: Admitting Provider Internal Medicine; Family Provider Nurse Practitioner; Visit Provider Internal Medicine
DX: I26.99 Other pulmonary embolism without acute cor pulmonale (principal); I21.A1 Myocardial infarction type 2; J96.91 Respiratory failure, unspecified with hypoxia; I82.433 Acute embolism and thrombosis of popliteal vein, bilateral; I82.412 Acute embolism and thrombosis of left femoral vein; I25.10 Atherosclerotic heart disease of native coronary artery without angina pectoris; J44.9 Chronic obstructive pulmonary disease, unspecified; Z89.511 Acquired absence of right leg below knee; I73.9 Peripheral vascular disease, unspecified; Z66 Do not resuscitate; F41.9 Anxiety disorder, unspecified; E87.5 Hyperkalemia
CPT/HCPCS: 36415; 36416; 36592; 51702; 80048; 80053; 82607; 82962; 83880; 84443; 84484; 85025; 85362; 85378; 85384; 85610; 85730; 93005; 93306; 93922; 93970; 94640; 94660; 97163; 97530; J0610; J1644; J1815; J1940; J2060; J2270; J2930; J7030; J7040